=== PATIENT | male | born 1935 | race Caucasian/White ===

== ENCOUNTER 2019-07-13 11:13 | Emergency (ER) | payer OTHER ==
[~2019-07-13] VITALS: Ht 172.7 cm; Wt 57.0 kg
[~2019-07-13 11:13] MED LIST: ACCOLATE10 MG PO; ACCUPRIL; ADULT LOW DOSE81 MG PO; ALLOPURINOL 30300 M1 PO; AMLODIPINE BESYL5 MG PO; ASPIR 8181 MG PO; AUGMENTIN 875-1 EACH PO; FIBER500 MG PO; HYDROCODON-ACE1 EACH PO; HYDROCODONE-AP1 EAC6 PO; HYDROXYZINE HCL25 M2 PO; KOMBIGLYZE XR1 EACH PO; LISINOPRIL-HCT1 EAC2 PO; LYRICA 50 MG50 MG PO; LYRICA100 MG PO; LYRICA150 MG PO; METFORMIN PO; MOBIC15 MG PO; NAPROSYN500 MG PO; NORCO 10-325 T1 EACH PO; NORCO 5-325 TA1 EACH PO; NORVASC5 MG PO; PROVENTIL HFA6.7 G1 INH; SENNA S TABLET1 EACH PO; THEOPHYLLINE S300 M1 PO; TRAMADOL 50 MG50 MG PO; TRAMADOL HCL50 MG PO; ZOCOR 20 MG TAB20 M1 PO; [UNRECOGNIZED DRUG - OTHER]
[2019-07-13 11:32] LABS: EOSINOPHILS 1.8 % (0.0-3.0); HEMATOCRIT 42.1 % (42.0-52.0); HEMOGLOBIN 13.9 gm/dL (14.0-18.0); MCH 31.1 pg (26.0-34.0); MCV 94.2 fL (80.0-100.0); MONOCYTES 3.9 % (1.0-8.0); PLATELET COUNT 158 thou/uL (150-400); POLYS 82.3 % (36.0-66.0); RBC 4.47 mil/uL (4.50-6.00); RDW 13.8 % (10.5-14.5); WBC 6.1 thou/uL (4.0-11.0)
[2019-07-13 11:40] LABS: ANION GAP 12 mmol/L (7-16); BUN 17 mg/dL (7-18); CHLORIDE 99 mmol/L (98-107); CO2 25 mmol/L (21-32); CREATININE 0.7 mg/dL (0.7-1.3); GLUCOSE 181 mg/dL (74-106); POTASSIUM 3.7 mmol/L (3.5-5.1); SODIUM 136 mmol/L (136-145)
[2019-07-13 11:50] LABS: ALBUMIN 4.1 g/dL (3.4-5.0); MAGNESIUM 1.7 mg/dL (1.8-2.4); SGOT 18 U/L (15-37); SGPT 17 U/L (30-65); TOTAL BILIRUBIN 0.6 mg/dL (<0.1-1.0); TROPONIN-I <0.06 ng/mL (<0.06)
[2019-07-13 12:21] LABS: URINE BILIRUBIN NEGATIVE (Negative); URINE BLOOD NEGATIVE (Negative); URINE CLARITY CLEAR; URINE COLOR YELLOW; URINE GLUCOSE-RANDOM* 3+ (Negative); URINE KETONES 1+ (Negative); URINE LEUKOCYTES-REFLEX NEGATIVE (Negative); URINE NITRITE-REFLEX NEGATIVE (Negative); URINE PROTEIN (DIPSTICK) 1+ (Negative); URINE SPECIFIC GRAVITY 1.015 (1.005-1.035); URINE UROBILINOGEN 0.2 E.U./dl (0.2-1.0)
[2019-07-13 12:40] LABS: CASTS None Seen /LPF (None Seen); CRYSTALS None Seen /LPF (None Seen); SQUAMOUS None Seen /LPF (0-3); URINE RBC 0-2 Rare /HPF (0-2)
[2019-07-13 12:41] LABS: BACTERIA-REFLEX 1-9 Few /HPF (None Seen); URINE WBC-REFLEX 0-5 Rare /HPF (0-5)
[2019-07-13] MEDS ORDERED: THEOPHYLLINE S300 M1 PO (13:39)
[2019-07-13] MEDS ORDERED: ACCOLATE10 MG PO (13:39)
[2019-07-13 15:17] VITALS: BP 160/85
--- NOTE | 2019-07-14 17:01 | EKG ---
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 : 1935 Requested By: Cheo Webber Order Number: [id number] MD: Miguel Angel Luciano Measurements Intervals [place] Rate: 74 P: 53 [place]: 150 QRS: 43 QRSD: 85 T: 60 QT: 403 QTc: 448 Interpretive Statements Sinus rhythm Premature complexes, vent & supraven Compared to ECG 10/18/2001 09:29:47 Ectopy is now present Electronically Signed On 07-14-2019 17:01:45 DIRECTOR SEARCH MARKETING STRATEGIES by Miguel Angel Luciano [email or web address] <ELECTRONICALLY SIGNED> By: Miguel Angel Luciano MD, [facility] 07/14/19 1701 15 Miguel Angel Luciano MD, FAC /EPI
== END 2019-07-13 15:17 | disposition home or self-care (01) ==
LOC: ER 11:13
PROVIDERS: Emergency Medicine
DX: R53.1 Weakness (principal); E78.5 Hyperlipidemia, unspecified; I10 Essential (primary) hypertension; J45.909 Unspecified asthma, uncomplicated; E11.40 Type 2 diabetes mellitus with diabetic neuropathy, unspecified; Z88.1 Allergy status to other antibiotic agents

== ENCOUNTER → 2019-08-09 | Outpatient (CLI) | payer OTHER ==
--- NOTE | 2019-08-09 10:12 | 2DMMODE ---
[facility] [place] [address] 2 D/M-MODE ECHOCARDIOGRAM Name: REHANSTEFANIE F Room #: [facility]#: [id number] Admission: 08/09/19 Attend Phys: Donte Jimenes, Discharge: Date of : 34 Report #: [id number] THIS REPORT FOR: //name// APPROVED REPORT Study performed: 08/09/2019 09:11:45 EXAM: Comprehensive 2D, Doppler, and color-flow Echocardiogram Patient Location: Out-Patient Status: routine BSA: 1.66 HR: 79 bpm BP: 134/70 mmHg Rhythm: NSR/irregular Other Information Study Quality: Good/low, off axis parasternal window. Indications Irregular heart beat. 2D Dimensions RVDd: 32.91 mm IVSd: 11.18 (7-11mm) LVOT Diam: 19.74 (18-24mm) LVDd: 47.41 mm PWd: 9.31 (7-11mm) LVDs: 35.35 (25-40mm) Aortic Root: 33.92 mm Volumes Left Atrial Volume (Systole) Single Plane 4CH: 29.33 mL Single Plane 2CH: 40.20 mL LA ESV Index: 22.00 mL/m2 Aortic Valve AoV Peak Lux.: 1.46 m/s AO Peak Gr.: 8.55 mmHg LVOT Max P.02 mmHg LVOT Max V: 1.00 m/s NEHA Vmax: 2.10 cm2 Mitral Valve E/A Ratio: 0.6 MV Decel. Time: 187.85 ms [facility] [address] [place] [address] 2 D/M-MODE ECHOCARDIOGRAM Name: STEFANIE VAN Room #: [facility]#: [id number] Admission: 08/09/19 Attend Phys: Donte Jimenes, Discharge: Date of : 34 Report #: [id number] MV E Max Lux.: 0.63 m/s MV A Lux.: 1.05 m/s MV PHT: 54.48 ms IVRT: 128.03 ms Pulmonary Valve PV Peak Lux.: 1.11 m/s PV Peak Gr.: 4.89 mmHg Pulmonary Vein P Vein S: 0.53 m/s P Vein D: 0.39 m/s P Vein S/D Ratio: 1.36 Tricuspid Valve TR Peak Lux.: 2.53 m/s RAP Estimate: 5.00 mmHg TR Peak Gr.: 26.00 mmHg PA Pressure: 31.00 mmHg Left Ventricle The left ventricle is normal size. There is normal LV segmental wall motion. There is normal left ventricular wall thickness. Left ventricular systolic function is normal. LVEF is 50-55%. Mild diastolic dysfunction Right Ventricle The right ventricle is normal size. The right ventricular systolic function is normal. Atria The left atrium size is normal. The right atrium size is normal. Aortic Valve The aortic valve is mildly sclerotic. Mild aortic regurgitation. There is no aortic valvular stenosis. Mitral Valve Mild mitral annular calcification. Trace to mild mitral regurgitation. Tricuspid Valve The tricuspid valve is normal in structure. Trace tricuspid regurgitation. Estimated PAP is 30-35mmHg. Pulmonic Valve The pulmonary valve is normal in structure. Trace pulmonic [facility] [place] [address] 2 D/M-MODE ECHOCARDIOGRAM Name: STEFANIE VAN Room #: [facility]#: [id number] Admission: 08/09/19 Attend Phys: Donte Jimenes, Discharge: Date of : 34 Report #: [id number] regurgitation. Great Vessels The aortic root is normal in size. Ascending aorta is not well visualized. IVC is normal in size and collapses >50% with inspiration. Pericardium There is no pericardial effusion. <Conclusion> Left ventricular systolic function is normal. There is normal LV segmental wall motion. LVEF is 50-55%. Mild diastolic dysfunction The aortic valve is mildly sclerotic. Mild aortic regurgitation no stenosis. Mild mitral annular calcification. Trace to mild mitral regurgitation. Trace tricuspid regurgitation. Estimated pulmonary artery pressure of 30-35mmHg. There is no pericardial effusion. <ELECTRONICALLY SIGNED> By: Miguel Angel Luciano MD, FACC 08/09/19 1012 1012 1012 Miguel Angel Luciano MD, [facility] /INF
[2019-08-09 10:44] LABS: CREATININE 1.1 mg/dL (0.7-1.3)
[2019-08-09 12:25] LABS: TSH 0.845 uIU/mL (0.358-3.740)
[2019-08-09 13:07] LABS: FOLIC ACID 36.3 ng/mL (8.6-58.9)
--- NOTE | 2019-08-10 08:27 | EKG ---
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: [facility] : 1935 Requested By: Donte Jimenes Order Number: [id number] MD: Miguel Angel Luciano Measurements Intervals [place] Rate: 74 P: 67 [place]: 150 QRS: 37 QRSD: 79 T: 64 QT: 352 QTc: 391 Interpretive Statements Sinus rhythm Atrial premature complex Compared to ECG 07/13/2019 11:16:52 Atrial premature complex(es) now present premature ventricular complexes no longer present Electronically Signed On 08-10-2019 8:27:08 VENDING ENTERPRISES SUPERVISOR by Miguel Angel Luciano [email or web address] <ELECTRONICALLY SIGNED> By: Miguel Angel Luciano MD, [facility] 08/10/1927 7 7 Miguel Angel Luciano MD, [facility] /EPI
[2019-08-11 20:08] LABS: ANA INTERPRETATION Positive (())
== END ==
LOC: CV 07:42
PROVIDERS: Psychiatry & Neurology Neurology
DX: I08.0 Rheumatic disorders of both mitral and aortic valves (principal); M19.90 Unspecified osteoarthritis, unspecified site; I48.91 Unspecified atrial fibrillation; F01.50 Vascular dementia, unspecified severity, without behavioral disturbance, psychotic disturbance, mood disturbance, and anxiety

== ENCOUNTER → 2019-08-26 | Outpatient (CLI) | payer OTHER ==
[2019-08-26 13:08] VITALS: BP 134/70
--- NOTE | 2019-09-06 17:51 | LINQ ---
[facility] [address] [place] [address] [employer] PROCEDURE REPORT Name: STEFANIE AVN Room #: REG [facility]#: [id number] Admission: 08/26/19 Attend Phys: Marty Coronel Discharge: Date of : 34 Report #: [id number] THIS REPORT FOR: //name// APPROVED REPORT Study performed: 08/26/2019 07:46:35 Patient Status: Out-Patient Room #: Event Personnel: Marty García MD Exam: Loop Recorder Insertion The patient is a 84 year-old male with a history of palpitations. Implanted Devices: [employer]; CONFIRM Rx; Reference #: [id number]; SN: [id number]; Use before: 2020-11-06 Procedure The patient underwent informed consent. We discussed the details of the procedure including the risks, which include, but not limited to bleeding, infection, vascular damage, cardiac perforation, and pneumothorax. After informed consent was obtained patient was brought to the cardiac catheterization prep and hold. The left chest was prepped and draped in usual sterile manner. Utilizing 1% lidocaine a wheal was raised locally instilled. The lidocaine was then continued subacute tenuously along the proposed insertion tract. Utilizing an 11 blade a small incision was made and the less than both blunt and sharp dissection a pocket was developed. Utilizing the standard deployment told the device was then inserted without complications. The subcutis tissue was closed with 2 simple interrupted sutures and the skin was closed with a running subcuticular absorbable 3-0 Vicryl. Entire procedure well is no complications no blood loss Conclusion 1. Successful insertion of an implantable loop recorder Recommendations 1. Routine post insertion protocol <ELECTRONICALLY SIGNED> By: Marty García MD 09/06/191750 50 50 Marty García MD /INF
== END | disposition home or self-care (01) ==
LOC: CATH 12:42
DX: R00.2 Palpitations (principal); Z98.890 Other specified postprocedural states; Z79.899 Other long term (current) drug therapy; Z88.8 Allergy status to other drugs, medicaments and biological substances

== ENCOUNTER → 2019-10-13 | Outpatient (CLI) | payer OTHER | LOC: SJCVC 12:23 | DX: R00.2 Palpitations (principal); E78.5 Hyperlipidemia, unspecified; I10 Essential (primary) hypertension; E11.9 Type 2 diabetes mellitus without complications; J45.909 Unspecified asthma, uncomplicated; Z79.82 Long term (current) use of aspirin; Z79.899 Other long term (current) drug therapy; Z79.84 Long term (current) use of oral hypoglycemic drugs ==

== ENCOUNTER 2020-07-26 16:19 | Inpatient (IN) | payer OTHER ==
[~2020-07-26] VITALS: Ht 167.6 cm; Wt 55.6 kg
[2020-07-26 16:20] VITALS: BP 159/70
[2020-07-26] MEDS ORDERED: OMEPRAZOLE 20 M20 M1 PO (16:35)
[2020-07-26] MEDS ORDERED: METFORMIN HCL500 M3 PO ×2 (16:35)
[2020-07-26] MEDS ORDERED: DONEPEZIL HCL5 M1 PO (16:36)
[2020-07-26] MEDS ORDERED: PROBIOTIC1 EAC7 PO (16:36)
[2020-07-26] MEDS ORDERED: NAMENDA 10 MG T10 MG PO (16:36)
[2020-07-26] MEDS ORDERED: FARXIGA10 MG PO (16:36)
[2020-07-26 17:21] LABS: ABSOLUTE NEUTROPHILS 6.6 thou/uL (1.4-8.2); BASOPHILS 1.3 % (0.0-2.0); EOSINOPHILS 1.3 % (0.0-3.0); HEMATOCRIT 35.6 % (42.0-52.0); HEMOGLOBIN 11.8 gm/dL (14.0-18.0); LYMPHOCYTES 6.1 % (24.0-44.0); MCH 31.7 pg (26.0-34.0); MCHC 33.2 g/dL (28.0-37.0); MCV 95.5 fL (80.0-100.0); MONOCYTES 5.7 % (1.0-8.0); PLATELET COUNT 237 thou/uL (150-400); POLYS 85.6 % (36.0-66.0); RBC 3.72 mil/uL (4.50-6.00); RDW 15.2 % (10.5-14.5); WBC 7.7 thou/uL (4.0-11.0)
[2020-07-26 17:31] LABS: APTT 27.5 Seconds (24.5-32.8); CALCIUM 9.6 mg/dL (8.5-10.1); CREATININE 1.2 mg/dL (0.7-1.3); POTASSIUM 3.8 mmol/L (3.5-5.1); PROTIME 10.4 Seconds (9.3-11.4)
[2020-07-26 17:41] LABS: ALBUMIN 3.5 g/dL (3.4-5.0); TOTAL BILIRUBIN 0.5 mg/dL (0.2-1.0); TOTAL PROTEIN 7.3 g/dL (6.4-8.2); TROPONIN-I 0.07 ng/mL (<0.06)
--- NOTE | 2020-07-26 21:23 | NUR ---
PT'S SON NUMBER [phone]
[2020-07-27 04:06] LABS: HEMOGLOBIN 11.1 gm/dL (14.0-18.0); MCH 31.1 pg (26.0-34.0); MCHC 32.6 g/dL (28.0-37.0); MCV 95.3 fL (80.0-100.0); RBC 3.57 mil/uL (4.50-6.00); RDW 14.9 % (10.5-14.5); WBC 7.7 thou/uL (4.0-11.0)
[2020-07-27 04:23] LABS: CALCIUM 9.1 mg/dL (8.5-10.1); MAGNESIUM 1.7 mg/dL (1.8-2.4); POTASSIUM 3.6 mmol/L (3.5-5.1)
--- NOTE | 2020-07-27 11:54 | NUR ---
PT'S SON INEZ VAN ([phone]) CALLED FOR PT UPDATE, WITH PT'S PERMISSION, UPDATE ON POC GIVEN. REQUESTED TO BE CALLED WHEN PT GETS A BED ASSIGNMENT.
[2020-07-27 14:07] VITALS: BP 146/78
[2020-07-27 14:40] VITALS: BP 149/79
[2020-07-27 15:00] VITALS: BP 156/88
--- NOTE | 2020-07-27 16:04 | NUR ---
PT ARRIVED TO 217 AT 1500. PT PLEASANTLY CONFUSED. ORIENTED TO SELF AND SITUATION, DOESN'T KNOW WHAT YEAR IT IS, NOR THAT YESTERDAY WAS THANKSGIVING. SPOKE WITH SON TO ANSWER ADMIT QUESTIONS AND LET PT UPDATE HIM ON ROOM TRANSFER. ORIENTED PT TO ROOM AND POC, CALL LIGHT IN BED, PT VISUALIZED FROM NURSES STATION. ON HIGH FALL RISK PRECAUTIONS. WILL MONITOR
[2020-07-27 20:30] VITALS: BP 160/76
--- NOTE | 2020-07-28 03:51 | NUR ---
Pt. very restless at the beginning of the shift. Attempting to get up out of bed several times without calling for help. He was assisted up in the recliner chair for about an hour. He then went back into the bed. He keeps yelling out for help because he c/o unable to breathe. O2 saturations have been in the upper 90's with 02 on at 2 liters per nasal canula. Spoke to Dot CAIN about pt. restlessness and new order for haldol received. Haldol was given (see emar) and pt. less restless for awhile. Then, found pt. iv out and heart monitor leads off. New iv had to be restarted and pt. agitated. Keeps taking off his oxygen and cursing at the staff. After iv restarted pt. less restless. He is currently resting quietly in the bed, but non-compliant with RT. He keeps taking off his oxygen. O2 via nasal canula replaced. Bed alarm is on. Assisted with the urinal and pt. voided.
[2020-07-28 04:45] VITALS: BP 130/84
[2020-07-28 08:00] VITALS: BP 127/73
--- NOTE | 2020-07-28 09:00 | 2DMMODE ---
[facility] [place] [address] 2 D/M-MODE ECHOCARDIOGRAM Name: STEFANIE VAN Room #: 217-P ADM IN M.R.#: [id number] Admission: 07/26/20 Attend Phys: Andrey Lora MD Discharge: Date of : 34 Report #: [id number] THIS REPORT FOR: cc: Bertrand Liriano James A. DO Lammoglia, Francisco J. MD ~ APPROVED REPORT Study performed: 07/28/2020 08:17:05 EXAM: Comprehensive 2D, Doppler, and color-flow Echocardiogram Patient Location: Bedside Room #: 217 Status: on-call BSA: 1.79 HR: 102 bpm BP: 146/87 mmHg Rhythm: Tachycardia Other Information Study Quality: Adequate/off axis windows. Technically limited study due to thin body habitus. No patient participation. Indications Chest pain, SOB, BLE. Hx: DM, HLP, HTN 2D Dimensions RVDd: 31.12 mm IVSd: 8.51 (7-11mm) LVOT Diam: 19.53 (18-24mm) LVDd: 43.41 mm PWd: 9.68 (7-11mm) LVDs: 38.17 (25-40mm) Aortic Root: 34.25 mm Volumes Left Atrial Volume (Systole) Single Plane 4CH: 43.19 mL Single Plane 2CH: 48.43 mL Aortic Valve AoV Peak Lux.: 1.03 m/s AO Peak Gr.: 4.20 mmHg LVOT Max P.40 mmHg LVOT Max V: 0.77 m/s [facility] [address] [place] [address] 2 D/M-MODE ECHOCARDIOGRAM Name: STEFANIE VAN Room #: 217-P [facility]#: [id number] Admission: 07/26/20 Attend Phys: Andrey Lora, Discharge: Date of : 34 Report #: [id number] NEHA Vmax: 2.26 cm2 Mitral Valve E/A Ratio: 1.4 MV Decel. Time: 122.70 ms MV E Max Lux.: 1.13 m/s MV A Lux.: 0.78 m/s MV PHT: 35.58 ms IVRT: 55.36 ms Pulmonary Valve PV Peak Lux.: 0.75 m/s PV Peak Gr.: 2.24 mmHg Pulmonary Vein P Vein S: 0.35 m/s P Vein D: 0.79 m/s P Vein S/D Ratio: 0.44 Tricuspid Valve TR Peak Lux.: 2.78 m/s RAP Estimate: 10.00 mmHg TR Peak Gr.: 31.00 mmHg PA Pressure: 41.00 mmHg Left Ventricle The left ventricle is normal size. There is normal left ventricular wall thickness. Left ventricular systolic function is moderately decreased. LVEF is 35%. Moderate diastolic dysfunction is present. Right Ventricle The right ventricle is normal size. Right ventricle is hypokinetic. Atria Left atrium is mildly dilated. The right atrium size is normal. Aortic Valve The aortic valve is normal in structure. Mild aortic regurgitation. There is no aortic valvular stenosis. Mitral Valve Mitral valve leaflets are thickened. Moderate to severe mitral regurgitation No evidence of mitral valve stenosis. Tricuspid Valve [facility] [address] [place] [address] 2 D/M-MODE ECHOCARDIOGRAM Name: REHANSTEFANIE Room #: 217-P ADM IN M.R.#: [id number] Admission: 07/26/20 Attend Phys: Andrey Lora, Discharge: Date of : 34 Report #: [id number] The tricuspid valve is normal in structure. Mild tricuspid regurgitation. Estimated PAP is 40-45mmHg. Pulmonic Valve The pulmonary valve is normal in structure. Mild pulmonic regurgitation. Great Vessels The aortic root is normal in size. Ascending aorta is not well visualized. IVC is normal in size and collapses <50% with inspiration. Pericardium There is no pericardial effusion. Bilateral pleural effusions noted. <Conclusion> The left ventricle is normal size. LVEF is 35%. Moderate diastolic dysfunction is present. Left atrium is mildly dilated. The aortic valve is normal in structure. Mild aortic regurgitation. Mitral valve leaflets are thickened. Moderate to severe mitral regurgitation The tricuspid valve is normal in structure. Mild tricuspid regurgitation. Estimated PAP is 40-45mmHg. The pulmonary valve is normal in structure. Mild pulmonic regurgitation. There is no pericardial effusion. <ELECTRONICALLY SIGNED> By: Marty García MD 07/28/20899 9 9 Marty García MD /INF
[2020-07-28 11:30] VITALS: BP 114/69
[2020-07-28 15:45] VITALS: BP 114/68
[2020-07-28 20:55] VITALS: BP 122/70
--- NOTE | 2020-07-29 04:20 | NUR ---
PT IS ALERT TO SELF. IS CONFUSED. MOSTLY IMPULSIVE-ESPECIALLY WHEN NEEDING TO URINATE OR HAVE A BM. HE IS UNSTEADY. USED BSC TWICE SO FAR. HAD A BM AND VOIDED. DENIES PAIN. HOB ELEVATED,PT ON /NC AND APPEARS STABLE.TRACE EDEMA TO HEATHER ANKLES. ST ON TELE.AFEBRILE.FALL PREC IN PLACE.
[2020-07-29 05:00] VITALS: BP 128/80
[2020-07-29 08:25] VITALS: BP 127/72
[2020-07-29 12:13] VITALS: BP 101/52
[2020-07-29 16:00] VITALS: BP 123/63
--- NOTE | 2020-07-29 17:30 | NUR ---
ASSUMMED PT CARE AT APPROXIMATELY 0700. PT A&O X2-3. FREQUENT REORIENTATION PROVIDED. ASSESSMENT CHARTED. FALL PRECAUTIONS IN PLACE. PT DENIES HAVING CHEST PAIN. PT DENIES HAVING SOB. PT DENIES HAVING ACUTE PAIN. VITAL SIGNS STABLE. BLOOD SUGARS STABLE. PT UP TO CHAIR THROUGHOUT SHIFT.
[2020-07-29 19:28] VITALS: BP 142/73
--- NOTE | 2020-07-30 03:48 | NUR ---
PT IS A/O X3.PT CARE ASSUMED WITH PT IN BED.PT IS CONFUSE AND IMPULSIVE AND FORGETFUL BUT REDIRECTABLE.PT USES URINAL AND BEDPAN.PT IS ON 4L OF O2 NC AND C/O SOA WITH EXERTION.PT HAS BREATHING TREATMENT.PT APPEARED TO BE IN NO ACUTE DISTRESS.PT IS ACCUCHECK ACHS.WILL CONTINUE TO MONITOR PER POC
[2020-07-30 04:44] VITALS: BP 141/84
--- NOTE | 2020-07-30 07:27 | EKG ---
[facility] [place] [address] [address] ELECTROCARDIOGRAM REPORT Name: STEFANIE VAN Room #: 217-P ADM IN M.R.#: [id number] Admission: 07/26/20 Attend Phys: Andrey Lora MD Discharge: Date of : 34 Report #: [id number] THIS REPORT FOR: cc: Bertrand Liriano James A. 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 : 1935 Requested By: Izabel Ren Order Number: [id number] MD: Rudi Vela Measurements Intervals [place] Rate: 122 P: 50 [place]: 133 QRS: 63 QRSD: 89 T: -29 QT: 311 QTc: 443 Interpretive Statements Sinus tachycardia with irregular rate Probable anteroseptal infarct, old Nonspecific repol abnormality, diffuse leads Compared to ECG 08/09/2019 09:38:48 Myocardial infarct finding now present Early repolarization now present Sinus rhythm no longer present Atrial premature complex(es) no longer present Electronically Signed On 07-30-2020 7:26:56 TRANSMISSION BUILDER by Rudi Vela [email or web address] <ELECTRONICALLY SIGNED> By: Rudi Vela MD, [facility] 07/30/20725 99 99 Rudi Vela MD, [facility] /EPI
[2020-07-30 08:30] VITALS: BP 131/68
[2020-07-30] MEDS ORDERED: CEFUROXIME250 MG PO (08:39)
[2020-07-30] MEDS ORDERED: ELIQUIS5 MG PO (08:39)
[2020-07-30] MEDS ORDERED: LISINOPRIL5 MG PO (08:41)
[2020-07-30] MEDS ORDERED: COREG6.25 MG PO (08:41)
[2020-07-30] MEDS ORDERED: LASIX 40 MG TAB40 MG PO (08:46)
[2020-07-30 08:50] LABS: CALCIUM 9.1 mg/dL (8.5-10.1); CREATININE 1.4 mg/dL (0.7-1.3)
[2020-07-30 08:51] LABS: POTASSIUM 3.2 mmol/L (3.5-5.1)
[2020-07-30] MEDS ORDERED: OXYGEN MISCELL (11:25)
[2020-07-30 11:40] VITALS: BP 121/55
[2020-07-30 12:42] VITALS: BP 141/84
[2020-07-30 15:12] VITALS: BP 141/84
--- NOTE | 2020-07-30 15:12 | NUR ---
Patient resides in independent home with . He uses a cane at home. He does have a walker at home per . Patient to discharge home today with home health care. Patient does not wear oxygen at home. Rest/Sat excercise reports need home oxygen. Patient has no preference for HH agency. DC emergency planner to fax orders to [facility] and packet to [facility]. Alerted to patient would be discharge with home oxygen and gave her [facility] number to call for delivary of oxygen at home
--- NOTE | 2020-07-30 16:44 | NUR ---
FAXED REFERRAL TO [facility] SPOKE WITH SONJA IN INTAKE THEY CAN ACCEPT. FAXED DC ORDERS/SUMMARY TO [facility] RECEIVED CONFIRMATION AND THEY WILL CALL TO ARRANGE VISITS.
== END 2020-07-30 17:29 | disposition home health service (06) | DRG 291 ==
LOC: ER 16:19 → 2N 18:56 → EROBS 18:56 → 2N 07-27 14:56
PROVIDERS: Nurse Practitioner; Nurse Practitioner Family; Physician Assistant; ADMIT Internal Medicine; ATTEND Internal Medicine
DX: I11.0 Hypertensive heart disease with heart failure (principal); J18.9 Pneumonia, unspecified organism; I50.21 Acute systolic (congestive) heart failure; J45.901 Unspecified asthma with (acute) exacerbation; I82.4Y3 Acute embolism and thrombosis of unspecified deep veins of proximal lower extremity, bilateral; E78.5 Hyperlipidemia, unspecified; G30.9 Alzheimer's disease, unspecified; R60.0 Localized edema; I08.3 Combined rheumatic disorders of mitral, aortic and tricuspid valves; F02.80 Dementia in other diseases classified elsewhere, unspecified severity, without behavioral disturbance, psychotic disturbance, mood disturbance, and anxiety; M10.9 Gout, unspecified; K21.9 Gastro-esophageal reflux disease without esophagitis; E11.42 Type 2 diabetes mellitus with diabetic polyneuropathy; Z20.828 Contact with and (suspected) exposure to other viral communicable diseases; Z79.84 Long term (current) use of oral hypoglycemic drugs; Z79.82 Long term (current) use of aspirin; Z79.899 Other long term (current) drug therapy; Z85.46 Personal history of malignant neoplasm of prostate
CPT/HCPCS: 10081

== ENCOUNTER → 2020-08-10 | Outpatient (CLI) | payer OTHER ==
[~2020-08-10] MED LIST changes: +CEFUROXIME250 MG PO; +COREG6.25 MG PO; +DONEPEZIL HCL5 M1 PO; +ELIQUIS5 MG PO; +FARXIGA10 MG PO; +LASIX 40 MG TAB40 MG PO; +LISINOPRIL5 MG PO; +METFORMIN HCL500 M3 PO; +NAMENDA 10 MG T10 MG PO; +OMEPRAZOLE 20 M20 M1 PO; +OXYGEN MISCELL; +PROBIOTIC1 EAC7 PO
== END ==
LOC: SJCVCIMAG 09:22
PROVIDERS: ATTEND Internal Medicine
DX: I49.1 Atrial premature depolarization (principal); I49.3 Ventricular premature depolarization; Z79.82 Long term (current) use of aspirin; Z79.899 Other long term (current) drug therapy

== ENCOUNTER 2020-10-23 06:33 | Inpatient (IN) | payer OTHER ==
[~2020-10-23] VITALS: Ht 177.8 cm; Wt 53.8 kg
[2020-10-23 06:34] VITALS: BP 133/72
[2020-10-23] MEDS ORDERED: ACIDOPHILUS CA1 EAC1 PO (06:48)
[2020-10-23] MEDS ORDERED: ACID REDUCER20 MG PO (06:53)
[2020-10-23] MEDS ORDERED: FUROSEMIDE 20 M20 MG PO (06:54)
[2020-10-23] MEDS ORDERED: FIBER500 MG PO (06:55)
[2020-10-23] MEDS ORDERED: KLOR-CON 10 ER10 MEQ PO (06:56)
[2020-10-23] MEDS ORDERED: SPIRONOLACTONE25 MG PO (06:57)
[2020-10-23] MEDS ORDERED: GLUCERNA237 ML PO (07:00)
[2020-10-23] MEDS ORDERED: LOPERAMIDE 2 MG2 M1 PO (07:01)
[2020-10-23 07:03] LABS: ABSOLUTE NEUTROPHILS 5.8 thou/uL (1.4-8.2); BASOPHILS 1.3 % (0.0-2.0); EOSINOPHILS 3.8 % (0.0-3.0); HEMATOCRIT 37.3 % (42.0-52.0); HEMOGLOBIN 11.8 gm/dL (14.0-18.0); LYMPHOCYTES 18.2 % (24.0-44.0); MCH 30.1 pg (26.0-34.0); MCHC 31.5 g/dL (28.0-37.0); MCV 95.3 fL (80.0-100.0); MONOCYTES 6.4 % (1.0-8.0); POLYS 70.3 % (36.0-66.0); RBC 3.91 mil/uL (4.50-6.00); RDW 15.2 % (10.5-14.5); WBC 8.2 thou/uL (4.0-11.0)
[2020-10-23] MEDS ORDERED: TYLENOL325 MG PO (07:03)
[2020-10-23] MEDS ORDERED: LANTUS100 UNIT/M SUBQ (07:03)
--- NOTE | 2020-10-23 07:04 | EKG ---
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: : 1935 Requested By: Carine Lagunas Order Number: [id number] MD: Rudi Vela Measurements Intervals [place] Rate: 50 P: VT: QRS: 64 QRSD: 114 T: -2 QT: 541 QTc: 494 Interpretive Statements Atrial fibrillation Ventricular premature complex Borderline intraventricular conduction delay Borderline low voltage, extremity leads Borderline prolonged QT interval Compared to ECG 07/26/2020 17:00:48 Ventricular premature complex(es) now present Sinus tachycardia no longer present Myocardial infarct finding no longer present Early repolarization no longer present Electronically Signed On 10-23-2020 7:04:05 PHARMACY DISTRICT MANAGER by Rudi Vela [email or web address] <ELECTRONICALLY SIGNED> By: Rudi Vela MD, [facility] 10/23/20 0704 Rudi Vela MD, [facility] /EPI
[2020-10-23] MEDS ORDERED: NOVOLOG100 UNIT/M SUBQ (07:05)
[2020-10-23 07:14] LABS: PROTIME 11.1 Seconds (9.3-11.4)
[2020-10-23 07:15] LABS: CREATININE 1.1 mg/dL (0.7-1.3); POTASSIUM 4.3 mmol/L (3.5-5.1)
[2020-10-23 08:01] LABS: URINE BILIRUBIN NEGATIVE (Negative); URINE BLOOD 1+ (Negative); URINE CLARITY CLEAR; URINE COLOR YELLOW; URINE GLUCOSE-RANDOM* 1+ (Negative); URINE KETONES NEGATIVE (Negative); URINE LEUKOCYTES-REFLEX NEGATIVE (Negative); URINE NITRITE-REFLEX NEGATIVE (Negative); URINE PROTEIN (DIPSTICK) 1+ (Negative); URINE SPECIFIC GRAVITY 1.015 (1.005-1.035); URINE UROBILINOGEN 0.2 E.U./dl (0.2-1.0)
[2020-10-23 09:23] LABS: URINE RBC 0-2 Rare /HPF (0-2); URINE WBC-REFLEX 0-5 Rare /HPF (0-5)
[2020-10-23 09:24] LABS: WBC CLUMPS Few (None Seen)
[2020-10-23 09:25] LABS: BACTERIA-REFLEX 1-9 Few /HPF (None Seen)
--- NOTE | 2020-10-23 09:33 | NUR ---
DPOA-SPOUSE MILY VAN GIVEN UPDATE ON POC.
[2020-10-23 10:36] LABS: CASTS None Seen /LPF (None Seen); CRYSTALS None Seen /LPF (None Seen); SQUAMOUS None Seen /LPF (0-3)
[2020-10-23] MEDS ORDERED: ARICEPT10 M1 PO (10:50)
[2020-10-23 11:18] LABS: PLATELET COUNT 197 thou/uL (150-400)
[2020-10-23 11:27] LABS: TOTAL PROTEIN 6.5 g/dL (6.4-8.2)
--- NOTE | 2020-10-23 14:23 | NUR ---
LIZBET WILEY CALLED. UPDATED ON POC AND ADMISSION.
[2020-10-23 15:12] VITALS: BP 143/82
[2020-10-23 15:53] VITALS: BP 157/85
[2020-10-23 16:00] VITALS: BP 148/72
[2020-10-23 16:30] LABS: FOLIC ACID 22.6 ng/mL (8.6-58.9)
--- NOTE | 2020-10-23 20:08 | NUR ---
PT. ARRIVED AT THE FLOOR AROUND 1600; PT. ALERT TO PERSON; ST. HE WANTS TO GET OUT OF THE BED; COMPULSIVE; EDUCATED ABOUT FALL PRECAUTIONS; REMAINED TO BE IN THE HOSPITAL; BG ON THE 60s; PRN GLUCOSE TABLET GIVEN; AFTER 10 MIN PT. VOMITED; PHYSICIAN NOTIFIED; ORDERS RECEIVED; BG CHECKED ON THE 40s; PRN IV MEDICATION GIVEN; REASSESSMENT BG ON THE 120s; PER REPORT PT. HAD THORACENTESIS EARLY ON THE DAY; KUB PERFORMED; RECEIVED CALL FROM RADIOLOGY; KUB SHOWED R. SMALL HEMOTHORAX; DR. BARNHART AND GEE NOTIFIED; ORDERS RECEIVED; PT. C/O SOB; PER DR. FLYNN PLACE 02 PRN; RECEIVED CALL FROM SON, INEZ VAN, , UPDATED ABOUT POC AND PT'S HEALTH; ST. UNDERSTANDING; UPDATED ABOUT VISITOR POLICIES; VISITOR HOURS AND CODE GIVEN; PER PT'S SON PT. IS A FULL CODE AT THE [facility]; HOME MEDS UPDATED; SR ON THE MONITOR; ASSESSMENT CHARGED; FOLLOWING POC; PASSED ON REPORT;
[2020-10-23 20:59] VITALS: BP 157/70
[2020-10-23 23:35] VITALS: BP 123/66
[2020-10-24 04:57] VITALS: BP 131/60
--- NOTE | 2020-10-24 05:17 | NUR ---
ASSUMED CARE OF THE PATIENT AT CHANGE OF SHIFT; AOX2/3 AT DIFFERENT POINTS IN SHIFT; COOPERATIVE WITH CARE; Q2H BG CHECK W/2 CONSECUTIVE BG CHECKS >150 MET SO ORDER COMPLETED AND BG ACHS RESUMED PER ORDER; PT CONTINUES 1.5L/NC; PT NPO AFTER MIDNOC D/T PLAN FOR CHEST TUBE INSERTION TODAY D/T DEVELOPMENT OF PNEUMOTHORAX S/P THORACENTESIS OF RT LUNG; PT IS STILL RECEIVING CONTINUOUS IVF THERAPY PER ORDER; CROCKETT IN PLACE WITH GOOD URINE OUTPUT; WILL CONTINUE TO MONITOR AND FOLLOW POC
[2020-10-24 05:41] LABS: ABSOLUTE NEUTROPHILS 9.8 thou/uL (1.4-8.2); BASOPHILS 0.2 % (0.0-2.0); HEMATOCRIT 30.9 % (42.0-52.0); HEMOGLOBIN 10.1 gm/dL (14.0-18.0); LYMPHOCYTES 5.4 % (24.0-44.0); MCH 30.4 pg (26.0-34.0); MCHC 32.5 g/dL (28.0-37.0); MCV 93.5 fL (80.0-100.0); MONOCYTES 5.1 % (1.0-8.0); PLATELET COUNT 149 thou/uL (150-400); POLYS 89.3 % (36.0-66.0); RDW 14.6 % (10.5-14.5)
[2020-10-24 06:14] LABS: CALCIUM 8.2 mg/dL (8.5-10.1); CREATININE 1.5 mg/dL (0.7-1.3)
--- NOTE | 2020-10-24 07:27 | NUR ---
RECIEVED OT EVAL AND TREAT ORDERS. PER NURSING NOTE, PLAN FOR CHEST TUBE PLACEMENT DUE TO R PNEUMOTHORAX TODAY. WILL HOLD TODAY AND COMPLETE OT EVAL TOMORROW, ThursdayOCT 25.
[2020-10-24 08:38] VITALS: BP 137/64
--- NOTE | 2020-10-24 08:57 | 2DMMODE ---
[facility] [place] [address] 2 D/M-MODE ECHOCARDIOGRAM Name: STEFANIE VAN Room #: 216-P [facility] M.R.#: [id number] Admission: 10/23/20 Attend Phys: Andrey Lora MD Discharge: Date of : 34 Report #: [id number] THIS REPORT FOR: cc: Bertrand Liriano James A. DO Santiago, Patrick MD [facility] ~ APPROVED REPORT Study performed: 10/24/2020 07:43:01 EXAM: Comprehensive 2D, Doppler, and color-flow Echocardiogram Patient Location: Bedside Room #: 216 Status: routine BSA: 1.67 HR: 58 bpm BP: 131/66 mmHg Rhythm: Bradycardia Other Information Study Quality: Technically Limited Indications Dyspnea Cardiomyopathy 2D Dimensions RVDd: 33.65 mm IVC: 21.00 mm Volumes Left Atrial Volume (Systole) Single Plane 4CH: 45.35 mL Single Plane 2CH: 66.98 mL LA ESV Index: 35.00 mL/m2 Aortic Valve AoV Peak Lux.: 1.35 m/s AO Peak Gr.: 7.24 mmHg LVOT Max P.77 mmHg LVOT Max V: 0.83 m/s Mitral Valve E/A Ratio: 0.9 MV Decel. Time: 272.60 ms MV E Max Lux.: 1.01 m/s [facility] [address] [place] [address] 2 D/M-MODE ECHOCARDIOGRAM Name: STEFANIE VAN Room #: 216-P [facility] IN ..#: [id number] Admission: 10/23/20 Attend Phys: Andrey Lora, Discharge: Date of : 34 Report #: [id number] MV A Lux.: 1.07 m/s MV PHT: 79.06 ms IVRT: 101.50 ms Pulmonary Valve PV Peak Lux.: 0.96 m/s PV Peak Gr.: 3.70 mmHg Pulmonary Vein P Vein S: 0.47 m/s P Vein A: 0.27 m/s P Vein D: 0.40 m/s P Vein A Dur.: 147.6 msec P Vein S/D Ratio: 1.17 Tricuspid Valve TR Peak Lux.: 3.59 m/s TR Peak Gr.: 51.43 mmHg PA Pressure: 61.00 mmHg Left Ventricle The left ventricle is normal size. There is global hypokinesis of the left ventricle. There is normal left ventricular wall thickness. Left ventricular ejection fraction is moderate decreased. LVEF is 35%. Grade II - pseudonormal filling dynamics. Right Ventricle Right ventricle is at the upper limits of normal. The right ventricular systolic function is normal. Atria Left atrium is dilated. Right atrium is at the upper limits of normal. Aortic Valve The aortic valve is normal in structure. The Aortic valve is sclerotic. Mild aortic regurgitation. There is no aortic valvular stenosis. Mitral Valve The mitral valve is normal in structure. Moderate mitral regurgitation. No evidence of mitral valve stenosis. Tricuspid Valve The tricuspid valve is normal in structure. There is mild tricuspid regurgitation. Estimated PAP 61 mmHg. There is moderate pulmonary hypertension. Pulmonic Valve [facility] [address] [address] 2 D/M-MODE ECHOCARDIOGRAM Name: STEFANIE VAN Room #: 216-P [facility] IN .R.#: [id number] Admission: 10/23/20 Attend Phys: Andrey Lora, Discharge: Date of : 34 Report #: [id number] The pulmonary valve is normal in structure. Trace pulmonic regurgitation. Great Vessels The aortic root is normal in size. IVC is dilated and collapses >50% with inspiration. Pericardium There is no pericardial effusion. <Conclusion> Left ventricular size upper normal with normal wall thickness Global hypokinesis ejection fraction 35% Grade 2 diastolic dysfunction Right ventricular size upper normal with normal wall thickness Mild left atrial enlargement Color-flow Doppler study was performed of the aortic/mitral/tricuspid/pulmonary valve Mild aortic valve insufficiency Moderate/central valve insufficiency Mild tricuspid valve insufficiency Pulmonary systolic pressure estimated at 65 mmHg IVC mildly dilated minimally responsive to respiration No pericardial effusion <ELECTRONICALLY SIGNED> By: Rudi Vela MD, FACC 10/24/20856 6 Rudi Vela MD, [facility] /INF
[2020-10-24 10:24] LABS: SOURCE THORACENTESIS
[2020-10-24 10:25] LABS: SOURCE THORACENTESIS
[2020-10-24 11:22] VITALS: BP 142/61
[2020-10-24 12:07] LABS: BODY FLUID ALBUMIN 2.3 g/dL (Not Estab.); BODY FLUID AMYLASE 129 U/L (()); BODY FLUID GLUCOSE 112 mg/dL (()); BODY FLUID LDH 127 IU/L (()); BODY FLUID PROTEIN 3.3 g/dL (())
[2020-10-24 12:14] LABS: CLARITY CLEAR; COLOR YELLOW; SOURCE THORACENTESIS
[2020-10-24 13:21] LABS: BF NUCLEATED CELLS 145 /mm3; BF RBC 181 /mm3
[2020-10-24 13:45] LABS: BF MACROPHAGE 0 %; BF NEUTROPHILS 2 %
--- NOTE | 2020-10-24 14:06 | NUR ---
PT. I SNOT GOING FOR CHEST TUBES TODAY POST CHEST XRAY AND DR. FLYNN'S RECCOMENDATIONS. HE HAD A LARGE STOOL TODAY SEMI FORMED SO NO LONGER C/O BEING CONSTIPATED NOW. HE IS PLEASANTLY CONFUSED MOST OF THE TIME, FOLLOWS COMMAND THOUGH ANF HELPFUL. USES CALL LIGHT AND DOES ASK FOR HELP. NO SIGN'S OF RESPIRATORY DISTRESS NOTED, NO SOB.
--- NOTE | 2020-10-24 14:25 | NUR ---
PT. RESPOSITIONED IN BED HE WIGGLES AROUND AND GETS CAUGHT UP IN HIS SHEETS. DENIES ANY PAIN AT THIS TIME, NO SOB, WEARING HIS OXYGEN AND KEEPS IT ON.
--- NOTE | 2020-10-24 15:09 | NUR ---
Case opened to follow for dc planning. Pt known to cm from previous admissions. He was here in July and dc'd to home home with o2 per [employer] and [facility] per [facility];however the pt admitted to [facility] of OP SNF in mid July for skilled rehab. He ended up staying there approx 5 weeks(some of that private pay) until they were able to place him in a memory care unit at [facility] in mid August. He is normally up walking in the hallway of the memory care with his rwalker and has o2 prn and at [facility]. Medications and meals are managed by the [facility] along with supervision for adl's. His Pooja still lives indep in their family home and their son David lives next door. David is the pt's designated visitor and he was here for a while this morning. He reports they would like him to go to the SNF at [facility] at [place] anticipating he will need some more strengthening. [facility] liason updated. Ny kit planner to fax clinical updated today. Dc time frame is uncertain pending his progress. Possible chest tube due to pneumonia and small pneumo. Pt/OT/[facility] pending. Pt's son David or Spouse Pooja are available as needed and and contact numbers verified. Will follow.
[2020-10-24 15:45] VITALS: BP 12/59
[2020-10-24 19:56] VITALS: BP 147/74
[2020-10-25 04:50] VITALS: BP 182/81
[2020-10-25 07:55] VITALS: BP 148/61
--- NOTE | 2020-10-25 07:57 | NUR ---
CONFUSED AT NIGHT BUT NOT TRYING TO GET OUT OF BED.DENIES PAIN.MONITOR SHOWS SR.POC CONTINUED.
[2020-10-25 08:47] LABS: HEMATOCRIT 33.9 % (42.0-52.0); MCH 30.2 pg (26.0-34.0); MCHC 32.3 g/dL (28.0-37.0); MCV 93.5 fL (80.0-100.0); RBC 3.62 mil/uL (4.50-6.00); RDW 14.9 % (10.5-14.5)
[2020-10-25 09:02] LABS: CREATININE 1.1 mg/dL (0.7-1.3); MAGNESIUM 2.2 mg/dL (1.8-2.4); POTASSIUM 4.1 mmol/L (3.5-5.1)
[2020-10-25 15:40] VITALS: BP 144/73
--- NOTE | 2020-10-25 15:59 | NUR ---
FAXED TODAY'S PT NOTES TO [facility] SPOKE WITH GRIS IN ADM SHE RECEIVED NOTES AND WILL OT NOTES ONCE AVAILABLE.
--- NOTE | 2020-10-25 16:51 | NUR ---
Pt's son here at bedside this afternoon. Pt and son aware and agreeable to dc to snf at [facility] tomorrow. Son to transport around 3pm. Wilbert dennis notes they will need dc orders as early as possible tomorrow. Pt feeling better. Plan for return to [facility] memory care after a short snf stay.
[2020-10-25 19:42] VITALS: BP 125/56
--- NOTE | 2020-10-25 19:59 | NUR ---
ASSUMED CARE SHIFT CHANGE. ASSESSMENT CHARTED.MEDS GIVEN. VSS. DENIES PAIN. O2 SATS WNL 1.5L O2. PT UP WITH PHYS THERAPY TOLERATING WELL. APPETITE ADEQUATE, UOP ADEQUATE. DENIES SOB. PLAN FOR DC [facility] REHAB AREA ONCE STABLE. CONTINUING TO MONITOR. REPORT PASSED ONTO NOC LIZ.
[2020-10-26 03:58] VITALS: BP 165/75
[2020-10-26 04:02] LABS: CALCIUM 8.6 mg/dL (8.5-10.1); MAGNESIUM 2.2 mg/dL (1.8-2.4)
--- NOTE | 2020-10-26 04:05 | NUR ---
Assumed pt care at 1900. Upon arrival to room, pt is noted to be sleeping but arousable. Pt is oriented to self. No sign of distress noted in pt. Fall precaution in place. Scheduled meds administered to pt, tolerated PO intake. RN spoke to patient's who wanted update on her . RN updated spouse on status of patient. Elevated BP noted with AM vitals. No acute events overnight. Pt is pending discharge. Continue to monitor. No further needs at this time.
[2020-10-26 04:07] LABS: HEMOGLOBIN 10.3 gm/dL (14.0-18.0); MCH 31.1 pg (26.0-34.0); MCHC 33.2 g/dL (28.0-37.0); MCV 93.7 fL (80.0-100.0); POTASSIUM 4.5 mmol/L (3.5-5.1); RBC 3.31 mil/uL (4.50-6.00); RDW 14.5 % (10.5-14.5); WBC 8.1 thou/uL (4.0-11.0)
[2020-10-26 08:15] VITALS: BP 171/87
[2020-10-26 08:40] VITALS: BP 171/87
[2020-10-26 11:40] VITALS: BP 159/89
--- NOTE | 2020-10-26 12:14 | NUR ---
All parties anticipating dc to SNF at [facility] today. Son to take him via family car at 3pm. Chart copy is in progress. The attending to touch base with the son. Dc senior materials planner to fax orders and covid neg test results.Pt to be skilled for therapy with return to [facility] memory care as appropriate.
[2020-10-26 12:15] VITALS: BP 159/89
[2020-10-26] MEDS ORDERED: METFORMIN HCL500 M3 PO (12:58)
--- NOTE | 2020-10-26 17:11 | NUR ---
PT CARE ASSUMED AT 0700. ASSESSMENTS CHARTED. MEDICATIONS CHARTED. RH IV. LAC IV. KEIRA. BM. SINUS RHYTHM. ACHS. TAKES MEDICATION WHOLE WITH WATER. COVID NEGATIVE 10/25/20. PT DISCHARGED TO [facility], TRANSPORTED BY LIZBET. KEIRA D/C'Braxton. IV'S D/C'D. TELEMETRY D/C'D. PAPERWORK FOR FACILITY GIVEN TO LIZBET.
--- NOTE | 2020-11-13 10:28 | PATH ---
[facility] [address] [place] [address] PATHOLOGY RPT PROCEDURE Name: STEFANIE VAN Room #: 216-P [facility] [place] ..#: [id number] Admission: 10/24/20 Date of : 33 Discharge: 10/26/20 Report #: [id number] Path Case #: [id number] Note [facility] Accession Number: [id number] TESTS RESULT FLAG UNITS REF RANGE LAB Clinician Provided Cytology Information No. of containers..01 Other (Miscellaneous) Source: PLEURAL FLUID DIAGNOSIS: 02 PLEURAL FLUID NEGATIVE FOR MALIGNANT EPITHELIAL CELLS. MESOTHELIAL CELLS ARE PRESENT. SCANT CELLULARITY. THIS INTERPRETATION INCLUDES EVALUATION OF A CELL BLOCK. Pathologist ICD10: 02 J90 Signed out by: 02 Ni Maza MD, Pathologist NPI- [id number] Performed by: Benoit Will, Iron Molder Helper ([facility]) Gross description: 01 5ML, CLEAR YELLOW, 1 TP 1 CB /LCS 11/07/2020 1402 Local FLAG LEGEND: L-Low Normal,H-High Normal,LL-Alert Low,HH-Alert High <-Panic Low,>-Panic High,A-Abnormal,AA-Critical Abnormal Performed at: [address] [place] [address] Angel Busby MD, [address] [address] Ni Maza MD, Specimen Comment: A courtesy copy of this report has been sent to [phone] Specimen Comment: Report sent to Specimen Comment: A duplicate report has been generated due to demographic updates. Performed at: [address], [place], [place] [id number] MD Angel Busby MD Phone: [phone]
== END 2020-10-26 15:20 | DRG 871 ==
LOC: ER 06:33 → EROBS 08:54 → 2N 08:54
PROVIDERS: Emergency Medicine; Nurse Practitioner; ADMIT Internal Medicine; ATTEND Internal Medicine
PROC: 0W993ZZ Drainage of Right Pleural Cavity, Percutaneous Approach (ICD-10-PCS; principal; 2020-10-23)
DX: A41.9 Sepsis, unspecified organism (principal); J18.9 Pneumonia, unspecified organism; J96.01 Acute respiratory failure with hypoxia; I50.23 Acute on chronic systolic (congestive) heart failure; J69.0 Pneumonitis due to inhalation of food and vomit; N17.0 Acute kidney failure with tubular necrosis; I13.0 Hypertensive heart and chronic kidney disease with heart failure and stage 1 through stage 4 chronic kidney disease, or unspecified chronic kidney disease; J91.8 Pleural effusion in other conditions classified elsewhere; I42.9 Cardiomyopathy, unspecified; Z20.822 Contact with and (suspected) exposure to COVID-19; J45.909 Unspecified asthma, uncomplicated; M10.9 Gout, unspecified; E78.5 Hyperlipidemia, unspecified; E11.42 Type 2 diabetes mellitus with diabetic polyneuropathy; E11.22 Type 2 diabetes mellitus with diabetic chronic kidney disease; E11.649 Type 2 diabetes mellitus with hypoglycemia without coma; T68.XXXA Hypothermia, initial encounter; R32 Unspecified urinary incontinence; F03.90 Unspecified dementia, unspecified severity, without behavioral disturbance, psychotic disturbance, mood disturbance, and anxiety; I34.0 Nonrheumatic mitral (valve) insufficiency; N18.9 Chronic kidney disease, unspecified; Z79.82 Long term (current) use of aspirin; Z79.899 Other long term (current) drug therapy; Z86.718 Personal history of other venous thrombosis and embolism; Z85.46 Personal history of malignant neoplasm of prostate
CPT/HCPCS: 10081